=== PATIENT | male | born 1955 | race Caucasian/White ===

== ENCOUNTER 2020-03-22 18:25 | Emergency (ER) | payer OTHER ==
[~2020-03-22] VITALS: Ht 172.7 cm; Wt 81.8 kg
[~2020-03-22 18:25] MED LIST: APIX2.5T PO; ATOR20TA86 PO; BECL10.6 IH; CLON-595 PO; CLOP-31 PO; ESCI-8 PO; GABA-1181 PO; HYDR-4455 PO; METO25 PO; PRAZ2 PO; QUET25TA PO
[2020-03-22 20:20] LABS: ANION GAP 12 mmol/L (8-16); CALCIUM, TOTAL 8.6 mg/dL (8.8-10.5); CARBON DIOXIDE 20 mmol/L (22-29); CHLORIDE 94 mmol/L (98-107); CREATININE 0.65 mg/dL (0.60-1.30); GLOMERULAR FILTR. RATE CALC > 60 mL/min (>60); GLUCOSE,RANDOM 105 mg/dL (70-110); SODIUM SERUM 126 mmol/L (136-145); UREA NITROGEN, BLOOD 4 mg/dL (7-18)
[2020-03-22 20:26] LABS: ALANINE AMINOTRANSFERASE 19 U/L (12-78); ALBUMIN 3.4 g/dL (3.4-5.0); ALKALINE PHOSPHATASE 106 U/L (46-116); ASPARTATE AMINOTRANSFERASE 14 U/L (15-37); BILIRUBIN,TOTAL 0.3 mg/dL (0.1-1.0); TOTAL PROTEIN, SERUM 6.8 g/dL (6.4-8.2)
[2020-03-22 21:02] VITALS: BP 140/88
== END 2020-03-22 21:31 | disposition home or self-care (01) ==
LOC: EMS 18:25
DX: M25.562 Pain in left knee (principal); J44.9 Chronic obstructive pulmonary disease, unspecified; I10 Essential (primary) hypertension; F17.210 Nicotine dependence, cigarettes, uncomplicated; F19.90 Other psychoactive substance use, unspecified, uncomplicated; G89.29 Other chronic pain